=== PATIENT | male | born 1945 | race Caucasian/White ===

== ENCOUNTER 2022-03-31 20:21 | Emergency (ER) | payer MEDICARE, SELFPAY ==
[2022-03-31] VITALS (8 sets, daily range): BP systolic 177–205; BP diastolic 97–122; PULSE 41–74; RESP 18; TEMP 37.1; O2SAT 92–97; BMI 22.5
--- NOTE | 2022-03-31 20:30 | XR_ITS ---
PROCEDURE INFORMATION: Exam: XR Chest Exam date and time: 03/31/2022 9:27 PM Age: 76 years old Clinical indication: Other: Weakness TECHNIQUE: Imaging protocol: XR of the chest. Views: 2 views. COMPARISON: No relevant prior studies available. FINDINGS: Lungs: Bilateral hyperinflation is present. No focal pneumonia or pneumothorax. Pleural spaces: See Lungs finding. Heart/Mediastinum: Unremarkable. No cardiomegaly. Vasculature: The vasculature demonstrates diffuse mild atherosclerotic calcification. Bones/joints: The thoracic spine demonstrates mild degenerative changes at multiple levels. IMPRESSION: 1. Bilateral hyperinflation is present. 2. No focal pneumonia or pneumothorax.
--- NOTE | 2022-03-31 20:30 | ECG_ITS ---
APPROVED REPORT Exam: Resting ECG HR:69 bpm ECG Measurements Heart Rate 69 AXES OK 165 P 63 QRSd 94 QRS 21 QT 387 T 61 QTc 406 Conclusion SINUS RHYTHM POSSIBLE RIGHT VENTRICULAR CONDUCTION DELAY [RSR (QR) IN V1/V2] BORDERLINE ECG UNCONFIRMED REPORT Electronically signed by : Shamar Koroma MD 04/03/2022 17:59:59
--- NOTE | 2022-03-31 20:35 | CT_ITS ---
PROCEDURE INFORMATION: Exam: CT Abdomen And Pelvis Without Contrast Exam date and time: 03/31/2022 9:38 PM Age: 76 years old Clinical indication: Abdominal tenderness and nausea; Additional info: Nausea, abd discomfort. Bun 59 creat 6.4 gfr 9 TECHNIQUE: Imaging protocol: Computed tomography of the abdomen and pelvis without contrast. Radiation optimization: All CT scans at this facility use at least one of these dose optimization techniques: automated exposure control; mA and/or kV adjustment per patient size (includes targeted exams where dose is matched to clinical indication); or iterative reconstruction. COMPARISON: EXTLRWO CT EXT.LOWER-RT-W/O CONTRAST 07/17/2016 2:56 PM FINDINGS: Lungs: Atelectatic changes noted within the right lung base. Liver: Normal. No mass. Gallbladder and bile ducts: Normal. No calcified stones. No ductal dilation. Pancreas: Normal. No ductal dilation. Spleen: Normal. No splenomegaly. Adrenal glands: Normal. No mass. Kidneys and ureters: Bilateral hydronephrosis present without definable calcifications. Mild atrophy of the left kidney with perinephric fat stranding present. Stomach and bowel: Unremarkable. No obstruction. No mucosal thickening. Appendix: No evidence of appendicitis. Intraperitoneal space: There is a small amount of free pelvic fluid present. Vasculature: The vasculature demonstrates diffuse mild atherosclerotic calcification. Lymph nodes: No mesenteric or retroperitoneal lymphadenopathy. Urinary bladder: Moderate distention of the bladder with mild wall thickening. Reproductive: There is enlargement of the prostate present with irregular thickening along the posterior aspect of the urinary bladder. Bones/joints: The lumbar spine demonstrates mild degenerative changes at multiple levels. Soft tissues: Left inguinal hernia is present with fat and bowel present. Other findings: Lack of IV contrast limits the study as well as decreases sensitivity and specificity. IMPRESSION: 1. There is enlargement of the prostate present with irregular thickening along the posterior aspect of the urinary bladder. Further evaluation is recommended to exclude neoplasm. 2. Moderate distention of the bladder with mild wall thickening. 3. Bilateral hydronephrosis present without definable calcifications. 4. Mild atrophy of the left kidney with perinephric fat stranding present. 5. No mesenteric or retroperitoneal lymphadenopathy. 6. Left inguinal hernia is present with fat and bowel present. 7. There is a small amount of free pelvic fluid present.
[2022-03-31 20:40] LABS: Basophils # 0.1 K/mm3 (0-0.2); Basophils % 1.5 % (0.1-2.0); Eosinophils # 0.1 K/mm3 (0.0-0.4); Eosinophils % 2.3 % (0.1-12.0); Hematocrit 35.8 % (42.0-52.0); Hemoglobin 12.4 g/dL (14.1-18.0); Lymphocytes # 1.2 K/mm3 (0.7-4.5); Lymphocytes % 25.8 % (10-50); Mean Corpuscular HGB Conc 34.5 g/dL (31.8-35.4); Mean Platelet Volume 8.9 fl (7.4-10.4); Monocytes # 0.4 K/mm3 (0.1-1.0); Monocytes % 7.6 % (1.7-9.3); Neutrophils # 2.9 K/mm3 (1.8-7.8); Neutrophils % 62.7 % (37.0-80.0); Platelet Count 243 K/mm3 (142-424); Red Blood Count 3.85 M/mm3 (4.60-6.20); Red Cell Distribution Width 13.2 % (11.5-17.5); White Blood Count 4.6 K/mm3 (4.8-10.8)
[2022-03-31 20:49] LABS: Microscopic, Urine URINE MICROSCOPIC (MICROSCOPIC)
[2022-03-31 20:59] LABS: Appearance,Urine CLEAR (Clear); Bilirubin,Urine Negative (Negative); Blood, Urine TRACE-I (Negative); Color,Urine YELLOW (Yellow); Glucose,Urine (UA) Negative (Negative); Ketones,Urine Negative (Negative); Leukocyte Esterase,Urine Negative (Negative); Nitrate,Urine Negative (Negative); Protein,Urine Negative (Negative); Urobilinogen,Urine 0.2 EU/dl (0.2)
[2022-03-31 21:08] LABS: Erythrocyte Sedimentation Rate 95 mm/hr (0-20)
[2022-03-31 21:13] LABS: Alanine Aminotransferase 16 U/L (12-78); Albumin Level 4.2 g/dl (3.5-5.0); Albumin/Globulin Ratio 1.5 (1.1-1.8); Alkaline Phosphatase 81 U/L (38-126); Anion Gap 16.5 mEq/L (5-15); Aspartate Amino Transferase 21 U/L (17-59); Bilirubin,Total 0.5 mg/dl (0.2-1.3); Blood Urea Nitrogen 59 mg/dl (9-20); Calcium 9.1 mg/dl (8.4-10.2); Carbon Dioxide 22 mmol/L (22.0-30.0); Chloride 110 mmol/L (98-107); Creatinine Clearance Estimated 11 mL/min (50-200); Estimated Glomerular Filt Rate 9 ml/min (>60); GFR (African American) 10 ML/MIN (>60); Globulin 2.8 g/dL (1.3-3.2); Glucose 115 mg/dl (74-100); Potassium 4.5 mmoL/L (3.5-5.1); Sodium 144 mmol/L (136-145)
[2022-03-31 21:17] LABS: C-Reactive Protein 12.9 mg/L (0-4)
--- NOTE | 2022-03-31 21:17 | PC.NURSE ---
Critical BUN 59, creat 6.40 called to Doreen Johnson RN. Results given to Dr. Woodson.
[2022-03-31 21:23] LABS: NT Pro Brain Natriuretic Pep. 5790 pg/mL (0-450)
[2022-03-31 21:28] LABS: Troponin I < 0.01 ng/ml (0.00-0.034)
[2022-03-31 21:32] LABS: Procalcitonin 0.082 ng/mL (0.0-2.0); T4 (Thyroxine) 8.2 ug/dl (5.53-11.0)
[2022-03-31 21:46] LABS: Thyroid Stimulating Hormone 3.71 uIU/mL (0.465-4.68)
--- NOTE | 2022-03-31 22:00 | [facility].EDWEAK ---
ED Disposition Clinical Impression: Acute urinary retention, Obstructive uropathy Renal failure Qualifiers: Renal failure chronicity: acute Acute renal failure type: unspecified Qualified Code(s): N17.9 - Acute kidney failure, unspecified Disposition: Home, Self-Care Condition on Discharge: Good Instructions: How to Care for Your Soriano Catheter -- Male Additional Instructions: call pcp in am and urology Prescriptions: cephALEXin [cephALEXin 500mg capsule*] 500 mg PO TID #30 cap Transmission Status: Pending to [facility]/pharmacy #[id number] Referrals: Vidya Donaldson MD [Primary Care Provider] - Chidi Villa MD [Staff Physician] - - Critical Care Critical Care Time: No Attestation: On 03/31/22, the high probability of a clinically significant, sudden or life threatening deterioration of the following system(s) required my full and direct attention, intervention and personal management. The time I documented below is in addition to time spent performing reported procedures but includes the following listed in this critical care notation. Medical Decision Making - Medical Records Medical records reviewed: Yes: I reviewed the patient's medical records. - Julian Inquiry Pt receiving controlled substance: No Vital Signs: 03/31/22 20:22 03/31/22 20:30 03/31/22 20:43 Temperature 98.8 F Temperature Source Oral Pulse Rate 63 71 Pulse Rate [Left Radial] 74 Respiratory Rate 18 Blood Pressure 205/109 H 177/122 H Blood Pressure [Right Arm] 190/120 H Blood Pressure Mean [Right Arm] 143 Blood Pressure Source [Right Arm] Automatic Cuff 02 Sat by Pulse Oximetry 97 96 96 Oxygen Delivery Method Room Air Room Air Room Air 03/31/22 21:00 03/31/22 21:30 03/31/22 22:15 Temperature Temperature Source Pulse Rate 58 L 59 L 41 L Pulse Rate [Left Radial] Respiratory Rate Blood Pressure 186/103 H 181/97 H 193/109 H Blood Pressure [Right Arm] Blood Pressure Mean [Right Arm] Blood Pressure Source [Right Arm] 02 Sat by Pulse Oximetry 96 95 92 L Oxygen Delivery Method Room Air Room Air Room Air 03/31/22 22:30 03/31/22 22:33 04/01/22 00:01 Temperature Temperature Source Pulse Rate 65 66 80 Pulse Rate [Left Radial] Respiratory Rate Blood Pressure 202/104 H 188/103 H 174/105 H Blood Pressure [Right Arm] Blood Pressure Mean [Right Arm] Blood Pressure Source [Right Arm] 02 Sat by Pulse Oximetry 95 94 L 92 L Oxygen Delivery Method Room Air Room Air Room Air - Lab Data Lab results reviewed: Yes: I reviewed the patient's lab results. Lab Results 03/31/22 20:30: ESR 95 H 03/31/22 20:30: Troponin I < 0.01, C-Reactive Protein 12.9 H, Procalcitonin 0.082, TSH 3.71, Thyroxine (T4) 8.2 03/31/22 20:30: WBC 4.6 L, RBC 3.85 L, Hgb 12.4 L, Hct 35.8 L, MCV 93.0, MCH 32.0 H, MCHC 34.5, RDW 13.2, Plt Count 243, MPV 8.9, Neut % (Auto) 62.7, Lymph % (Auto) 25.8, [place] % (Auto) 7.6, Eos % (Auto) 2.3, Baso % (Auto) 1.5, Neut # (Auto) 2.9, Lymph # (Auto) 1.2, [place] # (Auto) 0.4, Eos # (Auto) 0.1, Baso # (Auto) 0.1 03/31/22 20:30: Sodium 144, Potassium 4.5, Chloride 110 H, Carbon Dioxide 22, Anion Gap 16.5 H, BUN 59 H, Creatinine 6.40 H, Estimated Creat Clear 11, Estimated GFR 9 L*, Est GFR ( Amer) 10 L*, Glucose 115 H, Calcium 9.1, Total Bilirubin 0.5, AST 21, ALT 16, Alkaline Phosphatase 81, NT-Pro-B Natriuret Pep 5790 H, Total Protein 7.0, Albumin 4.2, Globulin 2.8, Albumin/Globulin Ratio 1.5 03/31/22 20:42: Urine Color Yellow, Urine Appearance Clear, Urine pH 6.0, Ur Specific [place] 1.010, Urine Protein Negative, Urine Glucose (UA) Negative, Urine Ketones Negative, Urine Blood Trace-i, Urine Nitrate Negative, Urine Bilirubin Negative, Urine Urobilinogen 0.2, Ur Leukocyte Esterase Negative, Urine RBC 3-5, Urine WBC 5-10 03/31/22 23:30: Troponin I 0.01 Result diagrams: 03/31/22 20:30 03/31/22 20:30 Orders (Tests/Meds): ED MEDICATIONS Generic Name Dose Route Start Last Admin Tr
[2022-03-31 23:59] LABS: Troponin I 0.01 ng/ml (0.00-0.034)
[2022-04-01 00:01] VITALS: BP 174/105; PULSE 80; O2SAT 92
[2022-04-01 00:33] VITALS: BP 162/80; PULSE 81; O2SAT 92
[2022-04-01 00:51] VITALS: BP 160/80; PULSE 80; RESP 20; TEMP 36.7; O2SAT 99
== END 2022-04-01 00:58 | disposition home or self-care (01) ==
PROVIDERS: Emergency Provider Emergency Medicine; PCP Family Medicine
DX: R33.8 Other retention of urine (principal); N17.9 Acute kidney failure, unspecified; R06.09 Other forms of dyspnea; R53.83 Other fatigue; R11.10 Vomiting, unspecified
CPT/HCPCS: 51702; 71046; 74176; 80053; 81001; 83880; 84145; 84436; 84443; 84484; 85025; 85651; 86140; 93005; 96360; 96361; 96374; 96375; 99284; J2405

== ENCOUNTER → 2022-04-06 08:30 | Outpatient (CLI) | payer MEDICARE, SELFPAY ==
[2022-04-06 09:17] LABS: Basophils # 0.1 K/mm3 (0-0.2); Basophils % 1.5 % (0.1-2.0); Eosinophils # 0.4 K/mm3 (0.0-0.4); Eosinophils % 6.6 % (0.1-12.0); Hematocrit 39.2 % (42.0-52.0); Hemoglobin 13.3 g/dL (14.1-18.0); Lymphocytes # 1.7 K/mm3 (0.7-4.5); Lymphocytes % 27.2 % (10-50); Mean Corpuscular HGB Conc 33.8 g/dL (31.8-35.4); Mean Corpuscular Hemoglobin 31.2 pg (27.0-31.2); Mean Corpuscular Volume 92.5 fl (80-94); Mean Platelet Volume 8.1 fl (7.4-10.4); Monocytes # 0.5 K/mm3 (0.1-1.0); Monocytes % 7.8 % (1.7-9.3); Neutrophils # 3.6 K/mm3 (1.8-7.8); Neutrophils % 56.9 % (37.0-80.0); Platelet Count 353 K/mm3 (142-424); Red Blood Count 4.24 M/mm3 (4.60-6.20); White Blood Count 6.3 K/mm3 (4.8-10.8)
[2022-04-06 09:27] LABS: Chloride 104 mmol/L (98-107); Potassium 4.8 mmoL/L (3.5-5.1); Sodium 137 mmol/L (136-145)
[2022-04-06 09:30] LABS: Anion Gap 9.8 mEq/L (5-15); Blood Urea Nitrogen 28 mg/dl (9-20); Carbon Dioxide 28 mmol/L (22.0-30.0); Estimated Glomerular Filt Rate 31 ml/min (>60); GFR (African American) 37 ML/MIN (>60)
[2022-04-06 09:31] LABS: Glucose 114 mg/dl (74-100)
== END ==
PROVIDERS: PCP Emergency Medicine; Visit Provider Emergency Medicine
DX: N17.9 Acute kidney failure, unspecified (principal)
CPT/HCPCS: 36415; 80048; 85025

== ENCOUNTER → 2022-04-09 02:58 | Outpatient (CLI) | payer MEDICARE, SELFPAY ==
--- NOTE | 2022-04-09 03:15 | PC.NURSE ---
PT PRESENTED WITH OUTPATIENT ORDER FOR CHAIDEZ CATHETER. PT STATES HE HAD CATHETER REMOVED TODAY AT MD OFFICE AND WAS TOLD IF HE WAS UNABLE TO VOID TO PRESENT TO ER FOR CHAIDEZ CATH PLACEMENT AND COLLECTION OF UA. PT STATES HE HAS BEEN UNABLE TO VOID. CHAIDEZ CATH PLACED. 1200 ML OF URINE RETURN AFTER INSERTION. VS. T 97.8 RR 16 HR 88 BP 139/90. BLADDER PALPABLE. PT REPORTS HE HAS TAKEN FLOMAX AND LASIX AND HAS COMPLETED HIS ANTIBIOTIC. PT DENIES PAIN. REPORTS PRESSURE AND URGENCY WITHOUT URINARY FLOW.
[2022-04-09 03:19] VITALS: BP 139/90; PULSE 88; RESP 16; TEMP 36.6; O2SAT 97
[2022-04-09 04:18] LABS: Microscopic, Urine URINE MICROSCOPIC (MICROSCOPIC)
[2022-04-09 04:23] LABS: Appearance,Urine CLEAR (Clear); Bilirubin,Urine Negative (Negative); Blood, Urine 2+ (Negative); Color,Urine YELLOW (Yellow); Glucose,Urine (UA) Negative (Negative); Ketones,Urine Negative (Negative); Leukocyte Esterase,Urine 2+ (Negative); Nitrate,Urine POSITIVE (Negative); PH,Urine 6.5 (5.0-8.5); Protein,Urine Negative (Negative); Specific Gravity, Urine <= 1.005 (1.005-1.030); Urobilinogen,Urine 0.2 EU/dl (0.2)
[2022-04-09 04:43] LABS: WBC,Urine 20-50 #/hpf (0-3)
[2022-04-09 04:44] LABS: Bacteria,Urine 3+ /lpf; Mucus,Urine 1+ /lpf
== END ==
PROVIDERS: Visit Provider Emergency Medicine
DX: B96.5 Pseudomonas (aeruginosa) (mallei) (pseudomallei) as the cause of diseases classified elsewhere (principal); N39.0 Urinary tract infection, site not specified; R33.9 Retention of urine, unspecified
CPT/HCPCS: 81001; 87086; 87088; 87186

== ENCOUNTER 2022-04-18 22:53 | Emergency (ER) | payer MEDICARE, SELFPAY ==
[2022-04-18 22:42] VITALS: BP 153/90; PULSE 115; RESP 20; TEMP 38; O2SAT 97; BMI 21.9
--- NOTE | 2022-04-18 22:50 | ECG_ITS ---
APPROVED REPORT Exam: Resting ECG HR:113 bpm ECG Measurements Heart Rate 113 AXES AL 152 P 56 QRSd 108 QRS 10 QT 311 T 56 QTc 378 Conclusion SINUS TACHYCARDIA INCOMPLETE RIGHT BUNDLE BRANCH BLOCK [90+ ms QRS DURATION, TERMINAL R IN V1/V2, 40+ ms S IN I/aVL/V4/V5/V6] ABNORMAL RHYTHM ECG UNCONFIRMED REPORT Electronically signed by : Shamar Koroma MD 04/20/2022 16:02:26
[2022-04-18 22:54] VITALS: BMI 21.9
[2022-04-18 23:06] LABS: Basophils # 0.1 K/mm3 (0-0.2); Basophils % 0.5 % (0.1-2.0); Eosinophils # 0.1 K/mm3 (0.0-0.4); Eosinophils % 0.7 % (0.1-12.0); Hematocrit 35.4 % (42.0-52.0); Hemoglobin 12.2 g/dL (14.1-18.0); Lymphocytes # 0.6 K/mm3 (0.7-4.5); Lymphocytes % 4.8 % (10-50); Mean Corpuscular HGB Conc 34.3 g/dL (31.8-35.4); Mean Corpuscular Hemoglobin 30.7 pg (27.0-31.2); Mean Corpuscular Volume 89.4 fl (80-94); Mean Platelet Volume 7.7 fl (7.4-10.4); Monocytes # 0.6 K/mm3 (0.1-1.0); Monocytes % 4.7 % (1.7-9.3); Neutrophils # 10.9 K/mm3 (1.8-7.8); Neutrophils % 89.3 % (37.0-80.0); Platelet Count 290 K/mm3 (142-424); Red Blood Count 3.96 M/mm3 (4.60-6.20); Red Cell Distribution Width 13.1 % (11.5-17.5); White Blood Count 12.3 K/mm3 (4.8-10.8)
[2022-04-18 23:10] LABS: MANUAL DIFFERENTIAL MANUAL DIFFERENTIAL (MANUAL DIFF)
[2022-04-18 23:13] LABS: Alanine Aminotransferase 23 U/L (12-78); Albumin Level 3.8 g/dl (3.5-5.0); Albumin/Globulin Ratio 1.3 (1.1-1.8); Alkaline Phosphatase 94 U/L (38-126); Aspartate Amino Transferase 27 U/L (17-59); Bilirubin,Total 0.3 mg/dl (0.2-1.3); Blood Urea Nitrogen 27 mg/dl (9-20); Calcium 9.1 mg/dl (8.4-10.2); Carbon Dioxide 24 mmol/L (22.0-30.0); Creatinine Clearance Estimated 38 mL/min (50-200); Estimated Glomerular Filt Rate 37 ml/min (>60); GFR (African American) 44 ML/MIN (>60); Globulin 2.9 g/dL (1.3-3.2); Glucose 108 mg/dl (74-100); Potassium 3.6 mmoL/L (3.5-5.1); Sodium 137 mmol/L (136-145); Total Protein,Serum 6.7 g/dl (6.3-8.2)
[2022-04-18 23:14] LABS: Lactic Acid 0.8 mmol/L (0.7-2.1)
[2022-04-18 23:19] LABS: C-Reactive Protein 11.8 mg/L (0-4)
--- NOTE | 2022-04-18 23:21 | [facility].EDWEAK ---
ED Disposition Clinical Impression: SIRS (systemic inflammatory response syndrome), Renal insufficiency UTI (urinary tract infection) due to urinary indwelling Soriano catheter Qualifiers: Indwelling urinary catheter type: indwelling urethral catheter Encounter type: initial encounter Qualified Code(s): T83.511A - Infection and inflammatory reaction due to indwelling urethral catheter, initial encounter; N39.0 - Urinary tract infection, site not specified Disposition: Home, Self-Care Condition on Discharge: Good Instructions: DI for Urinary Tract Infection (UTI) Additional Instructions: fluids and use meds and f/u with pcp Prescriptions: levoFLOXacin [Levaquin 500mg tab] 500 mg PO DAILY #7 tab Transmission Status: Pending to [facility]/pharmacy #[id number] Referrals: Rick Woodson MD [Primary Care Provider] - - Critical Care Critical Care Time: No Attestation: On 04/18/22, the high probability of a clinically significant, sudden or life threatening deterioration of the following system(s) required my full and direct attention, intervention and personal management. The time I documented below is in addition to time spent performing reported procedures but includes the following listed in this critical care notation. Medical Decision Making - Medical Records Medical records reviewed: Yes: I reviewed the patient's medical records. - Julian Inquiry Pt receiving controlled substance: No Vital Signs: 04/18/22 22:42 04/19/22 00:00 04/19/22 00:30 Temperature 100.4 F H Temperature Source Oral Pulse Rate 103 H 98 H Pulse Rate [Right] 115 H Respiratory Rate 20 Blood Pressure 133/75 141/78 H Blood Pressure [Right Arm] 153/90 H Blood Pressure Mean [Right Arm] 111 02 Sat by Pulse Oximetry 97 94 L 95 Oxygen Delivery Method Room Air Room Air 04/19/22 01:00 04/19/22 01:31 Temperature Temperature Source Pulse Rate 96 H Pulse Rate [Right] Respiratory Rate Blood Pressure 129/73 116/76 Blood Pressure [Right Arm] Blood Pressure Mean [Right Arm] 02 Sat by Pulse Oximetry 96 95 Oxygen Delivery Method Room Air Room Air - Lab Data Lab results reviewed: Yes: I reviewed the patient's lab results. Lab Results 04/18/22 00:02: Urine Color Yellow, Urine Appearance Cloudy, Urine pH 6.5, Ur Specific [place] 1.015, Urine Protein 1+, Urine Glucose (UA) Negative, Urine Ketones Negative, Urine Blood 3+, Urine Nitrate Negative, Urine Bilirubin Negative, Urine Urobilinogen 0.2, Ur Leukocyte Esterase 2+ A, Urine RBC 5-10, Urine WBC 5-10, Urine Bacteria 4+ 04/18/22 22:57: WBC 12.3 H, RBC 3.96 L, Hgb 12.2 L, Hct 35.4 L, MCV 89.4, MCH 30.7, MCHC 34.3, RDW 13.1, Plt Count 290, MPV 7.7, Neut % (Auto) 89.3 H, Lymph % (Auto) 4.8 L, [place] % (Auto) 4.7, Eos % (Auto) 0.7, Baso % (Auto) 0.5, Neut # (Auto) 10.9 H, Lymph # (Auto) 0.6 L, [place] # (Auto) 0.6, Eos # (Auto) 0.1, Baso # (Auto) 0.1, Total Counted 100, Neutrophils % (Manual) 96 H, Lymphocytes % (Manual) 4 L, Platelet Estimate Normal, RBC Morphology Normal, ESR 134 H 04/18/22 22:57: Sodium 137, Potassium 3.6, Chloride 105, Carbon Dioxide 24, Anion Gap 11.6, BUN 27 H, Creatinine 1.80 H, Estimated Creat Clear 38, Estimated GFR 37 L, Est GFR ( Amer) 44 L, Glucose 108 H, Calcium 9.1, Total Bilirubin 0.3, AST 27, ALT 23, Alkaline Phosphatase 94, C-Reactive Protein 11.8 H, Total Protein 6.7, Albumin 3.8, Globulin 2.9, Albumin/Globulin Ratio 1.3, Procalcitonin 0.423 04/18/22 22:57: Lactate 0.8 Result diagrams: 04/18/22 22:57 04/18/22 22:57 Orders (Tests/Meds): ED MEDICATIONS Generic Name Dose Route Start Last Admin Trade Name Freq PRN Reason Stop Dose Admin Sodium Chloride 1,000 mls @ 999 mls/hr 04/18/22 23:00 04/18/22 23:00 Sod Chlor 0.9% 1000ml Bag IV 04/19/22 00:00 999 mls/hr .Q1H1M GLORIA Administration Levofloxacin/Dextrose 750 mg in 150 mls @ 100 mls/hr 04/18/22 23:45 04/18/22 23:40 Levofloxacin 750mg/150ml Premix IV 05/02/22 23:44 100 ml
[2022-04-18 23:32] LABS: Procalcitonin 0.423 ng/mL (0.0-2.0)
[2022-04-18 23:38] LABS: Anion Gap 11.6 mEq/L (5-15); Chloride 105 mmol/L (98-107)
[2022-04-19] VITALS: BP 133/75; PULSE 103; O2SAT 94
--- NOTE | 2022-04-19 | XR_ITS ---
PROCEDURE INFORMATION: Exam: XR Chest Exam date and time: 04/19/2022 12:07 AM Age: 77 years old Clinical indication: Fever and other: Dizziness TECHNIQUE: Imaging protocol: XR of the chest. Views: 2 views. COMPARISON: CR XR CHEST 2V 03/31/2022 9:27 PM FINDINGS: Lungs: Coarse interstitial lung markings likely chronic. No consolidation. Pleural spaces: Unremarkable. No pleural effusion. No pneumothorax. Heart/Mediastinum: Unremarkable. No cardiomegaly. Bones/joints: Unremarkable. IMPRESSION: No acute findings.
[2022-04-19 00:06] LABS: Microscopic, Urine URINE MICROSCOPIC (MICROSCOPIC)
[2022-04-19 00:14] LABS: Lymphocytes % 4 % (10-50); Neutrophils % 96 % (42-76); Total Cells Counted 100
[2022-04-19 00:15] LABS: Platelet Estimate Normal; RBC Morphology Normal
[2022-04-19 00:16] LABS: Erythrocyte Sedimentation Rate 134 mm/hr (0-20)
[2022-04-19 00:30] VITALS: BP 141/78; PULSE 98; O2SAT 95
[2022-04-19 00:30] LABS: Bilirubin,Urine Negative (Negative); Blood, Urine 3+ (Negative); Color,Urine YELLOW (Yellow); Glucose,Urine (UA) Negative (Negative); Ketones,Urine Negative (Negative); Leukocyte Esterase,Urine 2+ (Negative); Nitrate,Urine Negative (Negative); PH,Urine 6.5 (5.0-8.5); Protein,Urine 1+ (Negative); Specific Gravity, Urine 1.015 (1.005-1.030); Urobilinogen,Urine 0.2 EU/dl (0.2)
[2022-04-19 00:47] LABS: Appearance,Urine Cloudy (Clear)
[2022-04-19 00:55] LABS: Bacteria,Urine 4+ /lpf
[2022-04-19 01:00] VITALS: BP 129/73; PULSE 96; O2SAT 96
[2022-04-19 01:31] VITALS: BP 116/76; O2SAT 95
--- NOTE | 2022-04-19 01:40 | PC.NURSE ---
Pt updated on POC. No new needs.
[2022-04-19 02:16] VITALS: BP 116/76; PULSE 91; RESP 16; TEMP 37.2; O2SAT 95
== END 2022-04-19 02:17 | disposition home or self-care (01) ==
PROVIDERS: Emergency Provider Emergency Medicine; PCP Emergency Medicine
DX: N39.0 Urinary tract infection, site not specified (principal); R42 Dizziness and giddiness; R53.1 Weakness; R33.9 Retention of urine, unspecified; R01.1 Cardiac murmur, unspecified; N40.0 Benign prostatic hyperplasia without lower urinary tract symptoms; Z79.899 Other long term (current) drug therapy; Z82.49 Family history of ischemic heart disease and other diseases of the circulatory system; Z80.9 Family history of malignant neoplasm, unspecified
CPT/HCPCS: 71046; 80053; 81001; 83605; 84145; 85007; 85025; 85651; 86140; 87040; 87077; 87086; 87088; 87186; 93005; 96361; 96374; 99285; J1956